=== PATIENT | female | born 1965 | race Caucasian/White ===

== ENCOUNTER 2020-01-06 20:34 | Emergency (ER) | payer BC, SELFPAY ==
--- NOTE | ~2020-01-06 | CT_ITS ---
EXAMINATION: CT brain wo con INDICATION: Right-sided weakness COMPARISON: 01/21/2019 TECHNIQUE: Standard unenhanced head CT. The dose-length product (DLP) was 605.33 mGy-cm. The mA was a djusted according to patient size. Iterative reconstruction technique was employed. FINDINGS: There is no intracranial hemorrhage, acute infarction, or abnormal mass lesion. Calcificati ons are again noted in the bilateral basal ganglia and right caudate nucleus. The ventricles are norm al. There is no abnormal mass effect or midline shift. The buckley-white matter differentiation is cely l. The basal cisterns are patent. The orbits are normal. There is mild mucosal thickening of the para nasal sinuses. IMPRESSION: 1. No acute intracranial abnormality. As per stroke protocol, I called these results to the Emergency Department, and discussed with Dr. Han roche at 2045 hours on 01/06/2020. Reviewed, dictated and finalized at location A. IMPRESSION: 1. No acute intracranial abnormality. As per stroke protocol, I called these results to the Emergency Department, and discussed with Dr. Fields at 2045 hours on 01/06/2020.
--- NOTE | ~2020-01-06 | XR_ITS ---
EXAMINATION: XR chest 1V portable INDICATION: Right-sided weakness TECHNIQUE: Portable AP chest at 2059 hours COMPARISON: None available FINDINGS: There are minimal airspace opacities of the lung bases. No pleural effusion or pneumothorax is identified. The heart size is normal for technique. IMPRESSION: 1. Minimal airspace opacities of the lung bases, likely atelectasis. Reviewed, dictated and finalized at location A.
--- NOTE | 2020-01-06 20:34 | ECG_ITS ---
Measurements Intervals [place] Rate: 96 P: 36 CT: 145 QRS: 26 QRSD: 89 T: 52 QT: 347 QTc: 440 Interpretive Statements SINUS RHYTHM NONSPECIFIC ST & T-WAVE ABNORMALITY- LATERAL LEADS BASELINE ARTIFACT- III, AVL BORDERLINE ECG Electronically Signed On 01-07-2020 7:17:11 CDT by Poncho Hernandez D.O.
[2020-01-06 20:45] VITALS: BP 157/77; PULSE 99; RESP 22; TEMP 36.8; O2SAT 97
[2020-01-06 20:54] LABS: Basophils Absolute Auto 0.1 K/mm3 (0.0-0.1); Basophils Percent Auto 0.9 % (0.2-1.2); Eosinophils Absolute Auto 0.2 K/mm3 (0-0.3); Hematocrit 46.9 % (37.0-47.0); Hemoglobin 15.9 g/dL (12.0-15.0); Immature Granulocyte Absolute 0.04 K/mm3 (0.00-0.031); Immature Granulocyte Percent A 0.5 % (0-0.5); Lymphocytes Absolute Auto 2.11 K/mm3 (0.9-3.2); Lymphocytes Percent Auto 27.4 % (18.3-44.2); Mean Corpuscular HGB Conc 33.9 g/dl (32-36); Mean Corpuscular Hemoglobin 32.5 pg (26-34); Mean Corpuscular Volume 95.9 fl (80-100); Mean Platelet Volume 9.8 fl (7.4-10.4); Monocytes Absolute Auto 0.8 K/mm3 (0.1-0.6); Monocytes Percent Auto 10.9 % (2.6-8.5); Neutrophils Absolute Auto 4.5 K/mm3 (1.3-6.7); Neutrophils Percent Auto 58.3 % (45.5-73.1); Platelet Count Result 240 k/mm3 (150-375); Red Blood Count 4.89 M/mm3 (4.2-5.4); Red Cell Distribution Width 13.5 % (11.5-14.5); White Blood Count 7.7 K/mm3 (4.5-10.0)
[2020-01-06 20:56] VITALS: BP 157/77; PULSE 96; RESP 14; O2SAT 97
--- NOTE | 2020-01-06 21:05 | ED.NEUROSD ---
HPI - Neuro Symptoms/Deficit General Chief Complaint: Suspected CVA Stated Complaint: numbness R side Time Seen by Provider: 01/06/20 21:04 History of Present Illness HPI Narrative: Sudden onset of umbness and weakness of the right side of the face and body followed by slurred speech and right facial droop. This started acutely around 1999 this evening. She has never had these or similar symtpoms before. She has hypercholesterolemia and boarderline DM. Related Data Allergies Allergy/AdvReac Type Severity Reaction Status Date / Time No Known Allergies Allergy Unverified 12/19/18 09:28 Review of Systems Review of Systems: All systems reviewed & are unremarkable except as noted in HPI and below Constitutional: Constitutional: Denies chills and Denies fever(s) Eyes: Eyes: Denies change in vision ENT: Denies dizziness Cardiovascular: Cardiovascular: Denies chest pain Respiratory: Respiratory: Denies dyspnea Gastrointestinal: Gastrointestinal: Denies abdominal pain Genitourinary: Genitourinary: Denies hematuria and Denies dysuria Neurologic: Denies headache(s), Reports focal weakness, Reports numbness and Reports weakness PMFSH Social History Social History Smoking status: Heavy tobacco smoker Alcohol intake: current Exam Const: General: healthy appearing, no acute distress and alert Orientation/consciousness: patient oriented x3 HENMT: Other: RIght sided facial droop Eyes: Conjunctivae: conjunctivae normal Pupils: Equal, round and reactive pupils present EOM: EOMs intact bilaterally Resp: Effort & Inspection: normal respiratory effort Auscultation: clear to auscultation bilaterally Cardio: Rate: regular rate Rhythm: regular rhythm Skin: General skin exam: normal color Neuro: General: patient oriented x3 Other: Right facial droop. Tongue deviation to the right. 4/5 strength in right upper and lower extremities. dysarthric speech without aphasia Course Vital Signs Vital signs: Vital Signs Temperature 36.8 C 01/06/20 20:45 Pulse Rate 99 01/06/20 20:45 Respiratory Rate 22 H 01/06/20 20:45 Blood Pressure 157/77 H 01/06/20 20:45 Pulse Oximetry 97 01/06/20 20:45 Temperature 36.7 C 01/06/20 22:14 Pulse Rate 97 01/06/20 22:14 Respiratory Rate 20 01/06/20 22:14 Blood Pressure 142/75 H 01/06/20 22:14 Pulse Oximetry 99 01/06/20 22:14 MDM - Neuro Symptoms/Deficit MDM Narrative Medical decision making narrative: She has clear lateralizing neurological findings with negative head ct and no contraindication to TPA. TPA was discussed with the patient as well as the need for transfer to a stroke center. She is in agreement. Case discussed with Ervin attending at [facility] He agrees with the plan and would like her to get a CTA if it will not delay transfer. EMS ready to take the patient. TPA started. CTA can be done upon her arrival to [facility]. Medical Records Attestation: I reviewed the patient's medical records. Lab Data Attestation: I reviewed the patient's lab results. Result diagrams: 01/06/20 20:48 01/06/20 20:48 Labs: Lab Results 01/06/20 01/06/20 01/06/20 Range/Units 20:41 20:48 20:48 WBC 7.7 (4.5-10.0) K/mm3 RBC 4.89 (4.2-5.4) M/mm3 Hgb 15.9 H (12.0-15.0) g/dL Hct 46.9 (37.0-47.0) % MCV 95.9 (80-100) fl MCH 32.5 (26-34) pg MCHC 33.9 (32-36) g/dl RDW 13.5 (11.5-14.5) % Plt Count 240 (150-375) k/mm3 MPV 9.8 (7.4-10.4) fl Immature Gran % (Auto) 0.5 (0-0.5) % Neut % (Auto) 58.3 (45.5-73.1) % Lymph % (Auto) 27.4 (18.3-44.2) % Angelina % (Auto) 10.9 H (2.6-8.5) % Eos % (Auto) 2.0 (0-4.4) % Baso % (Auto) 0.9 (0.2-1.2) % Lymph # (Auto) 2.11 (0.9-3.2) K/mm3 Angelina # (Auto) 0.8 H (0.1-0.6) K/mm3 Eos # (Auto) 0.2 (0-0.3) K/mm3 Baso # (Auto) 0.1 (0.0-0.1) K/mm3 Abs Immat Gran (auto) 0.04 H
[2020-01-06 21:07] LABS: INR 0.9; Partial Thromboplastin Time 25.7 SECONDS (22.3-36.8); Prothrombin Time 11.5 Seconds (11.1-14.7)
[2020-01-06 21:08] LABS: Blood Urea Nitrogen 14 mg/dL (7-17); Calcium 9.2 mg/dL (8.4-10.2); Carbon Dioxide 24 mmol/L (22-30); Chloride 108 mmol/L (98-107); Estimated CRCL calculation 72 ml/min; Estimated Glomerular Filt Rate 58; Glucose 95 mg/dL (65-105); Potassium 4.2 mmol/L (3.4-5.0); Sodium 140 mmol/L (137-145)
--- NOTE | 2020-01-06 21:08 | PC.NURSE ---
Called lab to add on Ethanol level
[2020-01-06 21:17] LABS: Ethanol < 10 mg/dL (<10)
[2020-01-06 21:19] LABS: Troponin I < 0.012 ng/mL (0.000-0.034)
--- NOTE | 2020-01-06 21:34 | PC.NURSE ---
Called [facility] to transport patient. [facility] declined
[2020-01-06 21:36] VITALS: BP 151/82; PULSE 95; RESP 18; O2SAT 95
--- NOTE | 2020-01-06 22:03 | PC.NURSE ---
EMS in ED. TPA still infusing at this time. Pump and medication leaving with patient.
[2020-01-06 22:14] VITALS: BP 142/75; PULSE 97; RESP 20; TEMP 36.7; O2SAT 99
== END 2020-01-06 22:14 | disposition short-term general hospital (02) ==
PROVIDERS: Emergency Provider Emergency Medicine
DX: I63.9 Cerebral infarction, unspecified (principal); F17.200 Nicotine dependence, unspecified, uncomplicated; R29.706 NIHSS score 6; R94.31 Abnormal electrocardiogram [ECG] [EKG]; R91.8 Other nonspecific abnormal finding of lung field
CPT/HCPCS: 36415; 37195; 70450; 71045; 80048; 80307; 82948; 84484; 85025; 85610; 85730; 93005; 99285; J2997

== ENCOUNTER 2020-07-03 13:40 | Outpatient (CLI) | payer BC, SELFPAY ==
--- NOTE | ~2020-07-03 | CT_ITS ---
EXAMINATION: CTA brain DATE: 07/03/2020 14:17 INDICATION: Stroke. TECHNIQUE: Computed tomographic angiography (CTA) of the head was performed with 100 mL Omnipaque-350 intravenous contrast. Automated exposure control and iterative reconstruction technique were employe d. The dose-length product was 442.40 mGy-cm. Maximum intensity projection 3D reconstructions were c reated. Volume-rendered 3D reconstructions of the intracranial arteries were created by the technolog ist on a separate workstation. COMPARISON: Head CT 01/06/2020 FINDINGS: There are dystrophic calcifications in the bilateral basal ganglia. There is no intracrania l hemorrhage, acute infarction, or abnormal intracranial mass lesion. The ventricles are normal in si ze. There is mild mucosal thickening in left maxillary sinus. The orbits are normal. There is a trace right mastoid effusion. Left vertebral artery is dominant. There is no significant stenosis of basil ar artery or the posterior cerebral arteries. There is no significant stenosis of the intracranial in ternal carotid arteries or anterior or middle cerebral arteries. Anterior communicating artery is nor mal. The posterior communicating arteries are normal. There is no aneurysm. IMPRESSION: 1. Normal brain. No aneurysm or significant intracranial arterial stenosis. Reviewed, dictated and finalized at location A. [employer]
== END 2020-07-03 13:41 | disposition home or self-care (01) ==
PROVIDERS: PCP Internal Medicine; Visit Provider Psychiatry & Neurology Neurology
DX: I63.40 Cerebral infarction due to embolism of unspecified cerebral artery (principal)
CPT/HCPCS: 70496; Q9967